=== PATIENT | male | born 1950 | race Caucasian/White ===

== ENCOUNTER 2024-11-30 15:55 | Emergency (ER) | payer MEDICARE, OTHER, SELFPAY ==
[2024-11-30] VITALS (7 sets, daily range): BP systolic 150–180; BP diastolic 74–82; BMI 29.1
--- NOTE | 2024-11-30 16:13 | ED.GENMED ---
History of Present Illness
<Harish Pak MD, Resident - Last Filed: 11/30/24 20:40>
General
Chief Complaint: Abdominal Pain
Source: patient and spouse
Time Seen by Provider: 11/30/24 16:12
Nursing documentation reviewed up to this point in time: agreed with
Travel History
Have you traveled to any high risk areas for coronavirus over the past 14 days?: No
Have you had any contact with someone who has COVID-19?: No
Do you have any symptoms of coronavirus? Fever > 100 degrees, chills, cough, shortness of breath, sore throat, loss of taste or smell, muscle aches, or headache?: No
History of Present Illness
History of Present Illness:
74-year-old male with remote PMH of diverticulitis, hyperlipidemia, presenting to the emergency department with 1 day history of LLQ abdominal pain that worsened overnight. Patient reports a sudden onset of sharp pain in the LLQ that started about
4 PM yesterday, rated 9/10, radiated towards the back and continued worsening until morning. Patient took 1000 mg Tylenol around 10 AM however the pain continued and he took another extra strength Tylenol on his way to the emergency department.
While in the ED, his pain has reduced to 2/10. He denies chest pain, fever, chills, hematochezia, dysuria, hematuria, SOB, fever, chills. Of note, his last BM was 2 days ago with a little bit of diarrhea but he reports irregular BMs. Patient does
not smoke and has never smoked, drinks socially. He denies history of abdominal surgery.
Past History
<Harish Pak MD, Resident - Last Filed: 11/30/24 20:40>
Past History
ED Past Medical History: Hypercholesterolemia and Other (Diverticulitis)
ED Past Surgical History: None
Patient has exhibited threatening behavior?: No
Social History
Tobacco: Non-smoker
Alcohol: Occasional
Drug: None
Personal:
Living: with family
Employment: Retired
Review of Systems
<Harish Pak MD, Resident - Last Filed: 11/30/24 20:40>
Review of Systems
All Other Systems: ROS reviewed and negative except as documented in HPI and ROS
Phy Exam
<Harish Pak MD, Resident - Last Filed: 11/30/24 20:40>
Physical Exam
Physical Exam:
GENERAL: Alert and oriented x 3, NAD. Afebrile
HEAD: NC/AT
OROPHARYNX: no exudate or ulcers.
EYE: pupils equal and reactive extraocular muscles
NECK: Supple, no significant adenopathy.
CARDIAC: Regular rate and rhythm without any obvious murmurs.
LUNGS: Normal breath sounds,normal-no rhonchi. Not bronchospastic.
ABDOMEN: Soft, left flank and LLQ tenderness, obese, no peritoneal signs.
NEUROLOGICAL: Alert and oriented x 3. No focal neurological deficit.
SKIN: Warm and dry, no rash or lesion, no discoloration, skin intact.
MUSCULOSKELETAL: Full range of motion of extremities.
LYMPHATIC:No lymph nodes on his neck or supraclavicular area.
PSYCH: Normal and appropriate interaction.
Gastrointestinal Exam
Gastrointestinal Exam: normal bowel sounds, soft, no pulsatile mass, non distended, no masses and tender (LLQ, left flank)
Palpation: left lower quadrant: Minimal tenderness (Left flank)
Course
<Harish Pak MD, Resident - Last Filed: 11/30/24 20:40>
Orders/Labs/Results
Orders:
Orders
11/30/24 16:05
IV Insert/Care/Rem.- Treatment PRN
Straight cath- Treatment ONCE
11/30/24 16:10
Complete Blood Count/With Diff Urgent
Comprehensive Metabolic Panel Urgent
Lipase Urgent
11/30/24 16:36
CT Abd/pelvis W Iv Cont Urgent
Comment:
Reason For Exam: Abdominal pain
11/30/24 16:44
Acetaminophen [Tylenol] 1,000 mg PO NOW STA
11/30/24 16:45
Ketorolac [Toradol] 15 mg IV NOW STA
11/30/24 18:51
Urinalysis Reflex To Culture Urgent
Date Specimen was Collected: 11/30/24
Time Specimen was Collected: 18:42
Urine Microscopic Reflex Cult Urgent
11/30/24 18:58
0.9% Sodium Chloride 1000 ml [Nss] 1,000 ml IV BOLUS
Tamsulosin [Flomax] 0.8 mg PO NOW STA
11/30/24 19:04
Amlodipine [Norvasc] 10 mg PO NOW STA
Abnormal Lab Results
11/30/24 11/30/24
16:10 18:51
RBC 4.44 L 10^6/uL
(4.70-6.10)
Hgb 12.9 L g/dL
(13.0-18.0)
Hct 37.6 L %
(39.0-52.0)
Absolute Neuts (auto) 7.0 H 10^3/uL
(1.4-6.5)
Absolute Monos (auto) 0.8 H 10^3/uL
(0.1-0.6)
Neutrophils % 76.3 H %
(42.2-75.2)
Lymphocytes % 14.2 L %
(20.5-51.1)
Glucose 101 H mg/dl
(70-99)
Urine Ketones 1+ A
(Negative)
Ur Occult Blood Reflex 4+ A
(Negative)
11/30/24 16:10
11/30/24 16:10
Vital Signs
Initial and Last Documented VS:
Initial Vital Signs
Temp Pulse Resp BP Pulse Ox
98.4 F 66 18 180/81 99
11/30/24 15:59 11/30/24 15:59 11/30/24 15:59 11/30/24 15:59 11/30/24 15:59
Last Documented Vital Signs
Temp Pulse Resp BP Pulse Ox
98.4 F 63 18 151/81 97
11/30/24 15:59 11/30/24 19:22 11/30/24 15:59 11/30/24 19:22 11/30/24 19:11
<Yuri Preciado, - Last Filed: 11/30/24 16:54>
Orders/Labs/Results
Orders:
Orders
11/30/24 16:05
IV Insert/Care/Rem.- Treatment PRN
Straight cath- Treatment ONCE
11/30/24 16:10
Complete Blood Count/With Diff Urgent
Comprehensive Metabolic Panel Urgent
Lipase Urgent
11/30/24 16:36
CT Abd/pelvis W Iv Cont Urgent
Comment:
Reason For Exam: Abdominal pain
11/30/24 16:44
Acetaminophen [Tylenol] 1,000 mg PO NOW STA
11/30/24 16:45
Ketorolac [Toradol] 15 mg IV NOW STA
11/30/24 18:51
Urinalysis Reflex To Culture Urgent
Date Specimen was Collected: 11/30/24
Time Specimen was Collected: 18:42
Urine Microscopic Reflex Cult Urgent
11/30/24 18:58
0.9% Sodium Chloride 1000 ml [Nss] 1,000 ml IV BOLUS
Tamsulosin [Flomax] 0.8 mg PO NOW STA
11/30/24 19:04
Amlodipine [Norvasc] 10 mg PO NOW STA
Abnormal Lab Results
11/30/24 11/30/24
16:10 18:51
RBC 4.44 L 10^6/uL
(4.70-6.10)
Hgb 12.9 L g/dL
(13.0-18.0)
Hct 37.6 L %
(39.0-52.0)
Absolute Neuts (auto) 7.0 H 10^3/uL
(1.4-6.5)
Absolute Monos (auto) 0.8 H 10^3/uL
(0.1-0.6)
Neutrophils % 76.3 H %
(42.2-75.2)
Lymphocytes % 14.2 L %
(20.5-51.1)
Glucose 101 H mg/dl
(70-99)
Urine Ketones 1+ A
(Negative)
Ur Occult Blood Reflex 4+ A
(Negative)
11/30/24 16:10
11/30/24 16:10
Vital Signs
Initial and Last Documented VS:
Initial Vital Signs
Temp Pulse Resp BP Pulse Ox
98.4 F 66 18 180/81 99
11/30/24 15:59 11/30/24 15:59 11/30/24 15:59 11/30/24 15:59 11/30/24 15:59
Last Documented Vital Signs
Temp Pulse Resp BP Pulse Ox
98.4 F 63 18 151/81 97
11/30/24 15:59 11/30/24 19:22 11/30/24 15:59 11/30/24 19:22 11/30/24 19:11
<Harish Pak MD, Resident - Last Filed: 11/30/24 20:40>
MDM/Problems Addressed
MDM/Problems Addressed:
74-year-old male with remote PMH of diverticulitis presenting to the emergency department with 1 day history of LLQ abdominal pain. Pain responded to extra strength Tylenol. Suspect diverticulitis, bowel obstruction, nephrolithiasis, acute
pancreatitis. AAA, aortic dissection less likely given no smoking history. Acute appendicitis less likely due to location. WBC count WNL, chemistry including lipase unremarkable. CT abdomen/pelvis with IV contrast pending. Will give a dose of
15 mg Toradol for pain and monitor for now.
<Harish Pak MD, Resident - Last Filed: 11/30/24 20:40>
*Radiology
Radiology exam reviewed: radiology read reviewed
*Critical Care Note
Total Time (30-74mins, 75-104mins- exclusive of procedures): Not Applicable
<Harish Pak MD, Resident - Last Filed: 11/30/24 20:40>
Update Note
Update Note:
Patient is feeling better. His CT scanning of abdomen and pelvis positive for obstructive uropathy with mild left hydronephrosis secondary to 3 mm UPJ calculus. Will give IV fluid bolus, tamsulosin and Norvasc. If he continues to feel better,
will discharge on these medications and have him follow-up with PCP. Patient has been instructed to take extra care standing up from a sitting or lying position while on these medications to prevent falls.
20: 22 patient has continued to feel better and is comfortable. Reports pain is well-controlled and is medically stable for discharge.
ED Attending Note
<Harish Pak MD, Resident - Last Filed: 11/30/24 20:40>
-
Portions of this chart may have been created with voice recognition software.� Occasional wrong word or��sound alike� substitutions may have occurred due to the inherent limitations of voice recognition software.
<Yuri Preciado DO - Last Filed: 11/30/24 16:54>
ED Attending Note
Patient seen and examined by attending physician: Yes
I performed a history and physical exam of patient and discussed management with resident, I reviewed resident's note and agree with documented findings and plan of care.: Yes
ED Attending Note:
Seen with resident examined independently 74-year-old male history of diverticulitis no history of ureteral stone presents with left lower quadrant left flank pain no hematuria looks nontoxic took some Tylenol earlier will check labs urine CT scan
Discharge Plan
Departure
Patient Disposition: Home (Routine Discharge)
Date of Disposition: 11/30/24
Time of Disposition: 19:50
Patient with high blood pressure during this ER visit?: No
Condition: Good
Discharge Problem:
Diverticulosis of colon
Instructions: Kidney Stones (DC), BLOOD PRESSURE
Prescriptions:
New
oxycodone-acetaminophen [Percocet] 5-325 mg tablet
1 tab PO Q6HPRN PRN (Reason: pain) Qty: 20 0RF
ibuprofen 600 mg tablet
600 mg PO Q8H PRN (Reason: Pain) Qty: 20 0RF
amlodipine 5 mg tablet
5 mg PO BID Qty: 20 0RF
tamsulosin 0.4 mg capsule
0.4 mg PO HS Qty: 10 0RF
ondansetron 4 mg tablet,disintegrating
4 mg PO TID PRN (Reason: nausea and vomiting) Qty: 20 0RF
Referrals:
Johny Pearce MD [Family Provider] - Follow up in 2-3 days
Sandeep Hebert MD [Active] - Next open appointment
Activity Restrictions/Additional Instructions:
Please read discharge instructions in their entirety. However, they are for general education and may not describe your exact diagnosis at discharge. Information on your ER visit and medical conditions were discussed with you along with appropriate
follow up information.
It was a pleasure meeting you and taking part in your care. We hope for your continued healing and wellness. You presented to the emergency department with left flank pain and left lower quadrant pain. Your CT scan was positive for a 3 mm kidney
stone in the left ureter causing mild left hydronephrosis. We gave you IV fluid and pain medications with Zofran, tamsulosin and Norvasc to control your pain and to help with the stone pass. Because of the position of the stone, it is unlikely
that the stone will pass while you are here in the emergency department. You have remained hemodynamically stable and your pain is well-controlled. You will be discharged with these medications and has been instructed to drink enough fluid while
at home and to follow-up with your primary care physician and urology. We have included a CD and paper reports of your CT scan.
Please schedule a follow up appointment as directed. Call to schedule an appointment.
Please take your medications as prescribed and follow up with your primary care provider and/or other healthcare provider involved in your care for any further adjustments to your medication regimen as necessary.
Please return to the emergency department with ANY change in, persisting, or worsening of symptoms. If any of your symptoms do not improve, or persist, or become more severe within 6-12 hours, please return to the emergency department for further
care. You may also return to the emergency department if you develop a headache, neck pain/stiffness, fever greater than 100.4F, chest pain, shortness of breath, persistent nausea, vomiting, slurred speech, difficulty walking, numbness/tingling,
weakness, signs of infection or any other symptoms that are worrisome to you.
If you have any questions or concerns please do not hesitate to call the Hospital at .
Interventions
Interventions:
*Risk Screen - Suicide Last Done: 11/30/24 15:59
*General Assessment Last Done: 11/30/24 18:42
*Neglect/Abuse Screening Last Done: 11/30/24 18:42
ED- Fall Risk Assessment Last Done: 11/30/24 19:11
*ED COVID-19 Vaccine History Last Done: 11/30/24 15:59
OR-Dhwixd-Ikixawqexd Assessment Last Done: 11/30/24 18:19
Discharge Date and Time
Print Language: OCCITAN
[2024-11-30 16:15] LABS: % Basophils 0.1 % (0-2); % Eosinophils 0.3 % (0-6); % Immature Granulocytes 0.2 % (0-0.5); % Lymphocytes 14.2 % (20.5-51.1); % Monocytes 8.9 % (1.7-9.3); % Neutrophils 76.3 % (42.2-75.2); Absolute Lymphocytes 1.3 10^3/uL (1.2-3.4); Absolute Monocytes 0.8 10^3/uL (0.1-0.6); Hematocrit 37.6 % (39.0-52.0); Hemoglobin 12.9 g/dL (13.0-18.0); Mean Corp Hgb Conc. 34.3 g/dL (33.0-37.0); Mean Corpuscular Hgb 29.1 pg (27.0-31.0); Mean Corpuscular Volume 84.7 fL (80.0-94.0); Mean Platelet Volume 9.4 fL (7.4-10.4); Nucleated Red Blood Cells % 0 % (-); Platelet Count 239 10^3/uL (130-400); Red Blood Cell Count 4.44 10^6/uL (4.70-6.10); Red Cell Dist. Width 12.2 % (11.5-14.5); White Blood Cell Count 9.2 10^3/uL (4.8-10.8)
[2024-11-30 16:37] LABS: ALT (SGPT) 31 U/L (0-50); AST (SGOT) 31 U/L (17-59); Albumin 4.5 g/dl (3.5-5.0); Alkaline Phosphatase 65 U/L (38-126); Blood Urea Nitrogen 20 mg/dl (9-20); Calcium 9.7 mg/dl (8.4-10.2); Carbon Dioxide 28 mmol/L (22-30); Chloride 103 mmol/L (98-107); Estimated Creatinine Clearance 60 ml/min; Glucose 101 mg/dl (70-99); Lipase 46 U/L (23-300); Potassium 4.5 mmol/L (3.5-5.1); Sodium 138 mmol/L (135-145); Total Bilirubin 0.9 mg/dl (0.2-1.3); Total Protein 7.4 g/dl (6.3-8.2); eGFR > 60.00
[2024-11-30] MEDS: TORADOL 15 MG IV (16:54)
[2024-11-30 19:04] LABS: Urine Albumin Negative (Neg - Trace); Urine Bilirubin Negative (Negative); Urine Character Clear (Clear); Urine Color Yellow; Urine Glucose Negative (Negative); Urine Ketone 1+ (Negative); Urine Leukocyte Negative (Negative); Urine Nitrite Negative (Negative); Urine Occult Blood 4+ (Negative); Urine Urobilinogen Negative (Neg - 1+)
[2024-11-30] MEDS: FLOMAX 0.8 MG PO (19:22)
[2024-11-30] MEDS: NORVASC 10 MG PO (19:22)
[2024-11-30] MEDS: NSS 1000 IV (19:23)
== END 2024-11-30 21:10 | disposition home or self-care (01) ==
LOC: EMR 15:55
PROVIDERS: Emergency Medicine; Student in an Organized Health Care Education/Training Program; EMERGENCY PHYSICIAN Emergency Medicine; FAMILY PHYSICIAN Internal Medicine
DX: K57.30 Diverticulosis of large intestine without perforation or abscess without bleeding (principal); N13.2 Hydronephrosis with renal and ureteral calculous obstruction; E78.00 Pure hypercholesterolemia, unspecified
CPT/HCPCS: 96374; 96361; 99284; 74177; 80053; 81003; 81015; 83690; 85025; Q9967

== ENCOUNTER → 2024-12-10 15:48 | Outpatient (REF) | payer MEDICARE, OTHER, SELFPAY | LOC: RAD 15:48 | PROVIDERS: ATTENDING PHYSICIAN Surgery; FAMILY PHYSICIAN Internal Medicine | DX: N13.2 Hydronephrosis with renal and ureteral calculous obstruction (principal) | CPT/HCPCS: 74018 ==

== ENCOUNTER 2025-07-12 10:40 | Emergency (ER) | payer MEDICARE, OTHER, SELFPAY ==
[2025-07-12 10:58] VITALS: BP 180/90
[2025-07-12 11:15] LABS: Hematocrit 40.8 % (39.0-52.0); Hemoglobin 13.7 g/dL (13.0-18.0); Mean Corp Hgb Conc. 33.6 g/dL (33.0-37.0); Mean Corpuscular Volume 85.0 fL (80.0-94.0); Nucleated Red Blood Cells % 0 % (-); Platelet Count 250 10^3/uL (130-400); Red Cell Dist. Width 11.9 % (11.5-14.5)
[2025-07-12 11:32] LABS: ALT (SGPT) 26 U/L (0-50); AST (SGOT) 26 U/L (17-59); Albumin 5.0 g/dl (3.5-5.0); Alkaline Phosphatase 63 U/L (38-126); Blood Urea Nitrogen 21 mg/dl (9-20); Calcium 9.6 mg/dl (8.4-10.2); Carbon Dioxide 27 mmol/L (22-30); Chloride 106 mmol/L (98-107); Glucose 114 mg/dl (70-99); Lipase 89 U/L (23-300); Potassium 4.0 mmol/L (3.5-5.1); Sodium 141 mmol/L (135-145); Total Protein 7.8 g/dl (6.3-8.2); eGFR > 60.00
[2025-07-12 11:55] LABS: Urine Character Clear (Clear)
[2025-07-12 12:11] LABS: Urine Red Blood Cell 16-20 /HPF (0-2); Urine Squamous Cell 0-2 /LPF (Few)
--- NOTE | 2025-07-12 15:32 | ED.GENMED ---
History of Present Illness
General
Chief Complaint: Abdominal Pain
Source: patient
Exam Limitations: none
Time Seen by Provider: 07/12/25 12:15
History of Present Illness
History of Present Illness:
Patient with left lower quadrant pain and some urinary frequency similar since last evening. No fever or chills. No change in bowel movements no other complaints. Symptoms are minimal at this time
Past History
Past History
ED Past Medical History: Hypercholesterolemia and Other (Diverticulitis)
ED Past Surgical History: None
Patient has exhibited threatening behavior?: No
Social History
Tobacco: Non-smoker
Alcohol: Occasional
Drug: None
Personal:
Living: with family
Employment: Retired
Review of Systems
Review of Systems
All Other Systems: Not applicable
Constitutional: Denies fever or chills
ABD/GI: Denies abdominal pain
Phy Exam
Physical Exam
Physical Exam:
GENERAL: Alert and oriented in no apparent distress
EYE: Orbits normal.
CARDIAC: Regular rate and rhythm without any obvious murmurs.
LUNGS: Clear breath sounds,normal
ABDOMEN: Soft, without focal tenderness or distention. No CVA tenderness
NEUROLOGICAL: Alert and oriented , grossly non-focal
SKIN: Warm and dry, no rash or lesion, no discoloration, skin intact.
MUSCULOSKELETAL: No edema,no deformity.Good color
PSYCH: Normal and appropriate interaction.
Course
Orders/Labs/Results
Orders:
Orders
07/12/25 11:06
Complete Blood Count/With Diff Urgent
Comprehensive Metabolic Panel Urgent
Lipase Urgent
Urinalysis Reflex To Culture Urgent
Date Specimen was Collected: 07/12/25
Time Specimen was Collected: 11:01
Urine Microscopic Reflex Cult Urgent
07/12/25 12:47
CT Abd/pel Without Iv Or Oral Urgent
Comment:
Reason For Exam: Left lower quadrant pain/hematuria
07/12/25 15:33
Acetaminophen [Tylenol] 650 mg .ROUTE .STK-MED ONE
07/12/25 15:34
Acetaminophen [Tylenol] 650 mg PO NOW STA
Abnormal Lab Results
07/12/25
11:06
Abs Immat Gran (auto) 0.1 H 10^3/uL
(0-0.05)
Absolute Neuts (auto) 8.3 H 10^3/uL
(1.4-6.5)
Absolute Monos (auto) 1.0 H 10^3/uL
(0.1-0.6)
Immature Gran % 0.6 H %
(0-0.5)
Neutrophils % 76.9 H %
(42.2-75.2)
Lymphocytes % 12.2 L %
(20.5-51.1)
Monocytes % 9.5 H %
(1.7-9.3)
BUN 21 H mg/dl
(9-20)
Glucose 114 H mg/dl
(70-99)
Ur Occult Blood Reflex 4+ A
(Negative)
Urine RBC 16-20 A /HPF
(0-2)
Urine Bacteria (Reflex) Few A
(Negative)
Urine Albumin (Reflex) 2+ A
(Neg - Trace)
07/12/25 11:06
07/12/25 11:06
Vital Signs
Initial and Last Documented VS:
Initial Vital Signs
Temp Pulse Resp BP Pulse Ox
97.5 F 58 16 180/90 98
07/12/25 10:58 07/12/25 10:58 07/12/25 10:58 07/12/25 10:58 07/12/25 10:58
Last Documented Vital Signs
Temp Pulse Resp BP Pulse Ox
97.5 F 62 18 132/68 99
07/12/25 10:58 07/12/25 15:38 07/12/25 15:38 07/12/25 15:38 07/12/25 15:38
MDM/Problems Addressed
Differential Diagnosis Includes:
Left lower quadrant pain. Much more suspicious of a kidney stone. CT PE scan confirms this. He is in no distress. He is nontoxic. Does not require admission for pain management. He has no acute infectious symptoms. Negative leukocyte negative
nitrite normal white count. Outpatient management and follow-up. Will also follow-up with colorectal. Copy of report given to patient.
*Radiology
Radiology exam reviewed: radiology read reviewed (4 mm stone distal UVJ with mild hydronephrosis. Renal cyst. Rectal thickening.)
*Pulse Oximetry
SaO2: 98
Oxygen Mode of Delivery: Room air
Patient hypoxic: no
*Critical Care Note
Total Time (30-74mins, 75-104mins- exclusive of procedures): Not Applicable
ED Attending Note
-
Portions of this chart may have been created with voice recognition software.� Occasional wrong word or��sound alike� substitutions may have occurred due to the inherent limitations of voice recognition software.
Discharge Plan
Departure
Patient Disposition: Home (Routine Discharge)
Date of Disposition: 07/12/25
Time of Disposition: 15:34
Patient with high blood pressure during this ER visit?: Yes
Discharge Problem:
Left distal ureteral kidney stone, Distal rectal/anal thickening
Instructions: Kidney Stones (DC), BLOOD PRESSURE
Prescriptions:
New
tamsulosin [Flomax] 0.4 mg capsule
0.4 mg PO DAILY Qty: 14 0RF
No Action
oxycodone-acetaminophen [Percocet] 5-325 mg tablet
1 tab PO Q6HPRN PRN (Reason: pain) Qty: 20 0RF
ibuprofen 600 mg tablet
600 mg PO Q8H PRN (Reason: Pain) Qty: 20 0RF
amlodipine 5 mg tablet
5 mg PO BID Qty: 20 0RF
tamsulosin 0.4 mg capsule
0.4 mg PO HS Qty: 10 0RF
ondansetron 4 mg tablet,disintegrating
4 mg PO TID PRN (Reason: nausea and vomiting) Qty: 20 0RF
Referrals:
Johny Pearce MD [Family Provider, Internal Medicine] - Follow up in 2-3 days
Kole Roque MD [Active, ColoRectal] - Follow up in 5-7 days
Sandeep Hebert MD [Active, Urology] - Follow up in 5-7 days
Activity Restrictions/Additional Instructions:
Tylenol or Advil for pain
Call the urologist and the colorectal surgeon for follow-up
Return with increased or intractable pain or any infectious symptoms as we discussed
Flomax was called to your pharmacy
Interventions
Interventions:
*Risk Screen - Suicide Last Done: 07/12/25 10:58
*General Assessment Last Done: 07/12/25 12:31
*ED- Fall Risk Assessment Last Done: 07/12/25 12:31
*Nursing Disposition Last Done: 07/12/25 15:39
AU-Ldqzkj-Blfayyopzv Assessment Last Done: 07/12/25 12:31
Discharge Date and Time
Discharge Date/Time: 07/12/25 15:44
Print Language: VENEZUELAN
[2025-07-12] MEDS: TYLENOL 650 MG PO (15:34)
[2025-07-12 15:38] VITALS: BP 132/68
== END 2025-07-12 15:44 | disposition home or self-care (01) ==
LOC: EMR 10:40
PROVIDERS: EMERGENCY PHYSICIAN Emergency Medicine; FAMILY PHYSICIAN Internal Medicine
DX: N13.2 Hydronephrosis with renal and ureteral calculous obstruction (principal); E78.00 Pure hypercholesterolemia, unspecified; N28.1 Cyst of kidney, acquired
CPT/HCPCS: 99284; 74176; 80053; 81003; 81015; 83690; 85025